=== PATIENT | male | born 1965 | race Two or more races ===

== ENCOUNTER 2022-06-23 14:50 | Emergency (ER) | payer OTHER ==
[~2022-06-23] VITALS: Ht 167.6 cm; Wt 210.0 kg
[~2022-06-23 14:50] MED LIST: TAM04C PO
[2022-06-23 15:08] VITALS: BP 127/76
[2022-06-23 15:40] LABS: Basophils # (auto) 0.1 10 ^3/uL (0-0.2); Basophils % (auto) 0.7 % (0.0-2.0); Eosinophils # (auto) 0.2 10 ^3/uL (0-0.8); Eosinophils % (auto) 1.5 % (0.0-7.0); Hematocrit 47.3 % (41.0-53.0); Hemoglobin 15.7 g/dL (13.5-17.5); Lymphocytes # (auto) 2.4 10 ^3/uL (0.4-5.4); Lymphocytes % (auto) 20.2 % (10.0-50.0); Mean Corpuscular Hgb Conc. 33.2 g/dL (32.0-36.0); Mean Corpuscular Volume 87.4 fL (80.0-100.0); Monocytes # (auto) 0.7 10 ^3/uL (0-1.3); Monocytes % (auto) 6.1 % (0.0-12.0); Neutrophils # (auto) 8.3 10 ^3/uL (1.6-8.6); Neutrophils % (auto) 71.5 % (37.0-80.0); Nucleated Red Blood Cells % 0.2 %; Red Blood Cells 5.41 10^6/uL (4.5-5.90); Red Cell Distribution Width 13.5 % (11.8-14.3); White Blood Cell 11.6 10^3/uL (4.4-10.8)
[2022-06-23 15:58] LABS: Albumin 3.7 g/dL (3.4-5.0); Calcium 8.7 mg/dL (8.5-10.1); Potassium 3.9 mmol/L (3.5-5.1)
[2022-06-23 16:01] LABS: BUN/Creatinine Ratio 12.7; Bilirubin, Total 1.3 mg/dL (0.2-1.0); Total Protein 7.4 g/dL (6.4-8.2)
[2022-06-23 21:54] LABS: Urine Bacteria MOD /hpf (None Seen); Urine Blood 3+ /uL (Negative); Urine Budding Yeast OCCASIONAL /hpf (None Seen); Urine WBC 3714 /hpf (0 - 3); Urine WBC Clumps PRESENT /hpf (None Seen)
[2022-06-23 22:11] LABS: Urine Specific Gravity 1.026 (1.001-1.035)
[2022-06-23] MEDS ORDERED: CIPR500T4 PO (23:25)
== END 2022-06-23 23:41 | disposition home or self-care (01) ==
LOC: ER 14:50
DX: N39.0 Urinary tract infection, site not specified (principal)
CPT/HCPCS: 36415; 51702; 80053; 81001; 85025